=== PATIENT | female | born 2000 | race Two or more races ===

== ENCOUNTER → 2021-01-24 | Emergency (ER) | payer OTHER | END | disposition home or self-care (01) | LOC: ER 02:05 | DX: S90.466A Insect bite (nonvenomous), unspecified lesser toe(s), initial encounter (principal); O26.891 Other specified pregnancy related conditions, first trimester; Z3A.09 9 weeks gestation of pregnancy; W57.XXXA Bitten or stung by nonvenomous insect and other nonvenomous arthropods, initial encounter; Y92.89 Other specified places as the place of occurrence of the external cause ==

== ENCOUNTER 2021-06-20 15:56 | Inpatient (IN) | payer OTHER ==
[~2021-06-20] VITALS: Ht 154.9 cm; Wt 78.9 kg
[2021-06-21] MEDS ORDERED: ATABEX OB TABL1 EACH (08:56)
== END 2021-06-22 09:35 | disposition home or self-care (01) | DRG 833 ==
LOC: LDR 15:56
PROVIDERS: ADMIT Obstetrics & Gynecology; ATTEND Obstetrics & Gynecology
PROC: 4A1HXCZ Monitoring of Products of Conception, Cardiac Rate, External Approach (ICD-10-PCS; principal; 2021-06-20)
PROC: BY4FZZZ Ultrasonography of Third Trimester, Single Fetus (ICD-10-PCS; 2021-06-20)
PROC: B246ZZZ Ultrasonography of Right and Left Heart (ICD-10-PCS; 2021-06-21)
DX: O26.893 Other specified pregnancy related conditions, third trimester (principal); R55 Syncope and collapse; R42 Dizziness and giddiness; Z3A.30 30 weeks gestation of pregnancy; Z20.822 Contact with and (suspected) exposure to COVID-19

== ENCOUNTER 2021-08-21 04:34 | Inpatient (IN) | payer OTHER ==
[~2021-08-21] VITALS: Ht 154.9 cm; Wt 3.2 kg
[~2021-08-21 04:34] MED LIST: ATABEX OB TABL1 EACH
[2021-08-21] MEDS ORDERED: PRENATAL + DHA1 EAC1 PO (11:47)
[2021-08-24] MEDS ORDERED: PRENATAL + DHA1 EAC1 PO (08:21)
== END 2021-08-24 11:19 | disposition home or self-care (01) | DRG 788 ==
LOC: SURG-SUITE 04:34 → LDR 04:34 → SURG-SUITE 19:52
PROVIDERS: ADMIT Obstetrics & Gynecology; ATTEND Obstetrics & Gynecology
PROC: 4A1HXCZ Monitoring of Products of Conception, Cardiac Rate, External Approach (ICD-10-PCS; 2021-08-21)
PROC: 10D00Z1 Extraction of Products of Conception, Low, Open Approach (ICD-10-PCS; principal; 2021-08-21 16:30)
DX: O36.63X0 Maternal care for excessive fetal growth, third trimester, not applicable or unspecified (principal); Z3A.39 39 weeks gestation of pregnancy; Z37.0 Single live birth; Z20.822 Contact with and (suspected) exposure to COVID-19

== ENCOUNTER 2022-07-26 20:21 | Emergency (ER) | payer OTHER ==
[~2022-07-26] VITALS: Ht 154.9 cm; Wt 81.6 kg
[~2022-07-26 20:21] MED LIST changes: +PRENATAL + DHA1 EAC1 PO
== END 2022-07-26 22:21 | disposition home or self-care (01) ==
LOC: ER 20:21
DX: H92.02 Otalgia, left ear (principal); H61.22 Impacted cerumen, left ear